=== PATIENT | male | born 1940 | race Caucasian/White ===

== ENCOUNTER → 2023-07-07 10:39 | Outpatient (REF) | payer MEDICARE, OTHER, SELFPAY ==
[2023-07-07 12:06] LABS: % Basophils 1.2 % (0-2); % Eosinophils 5.2 % (0-6); % Immature Granulocytes 0.2 % (0-0.5); % Lymphocytes 23.2 % (20.5-51.1); % Monocytes 16.1 % (1.7-9.3); % Neutrophils 54.1 % (42.2-75.2); Absolute Basophils 0.1 10^3/uL (0-0.2); Absolute Eosinophils 0.2 10^3/uL (0-0.7); Absolute Monocytes 0.7 10^3/uL (0.1-0.6); Absolute Neutrophils 2.3 10^3/uL (1.4-6.5); Hematocrit 42.2 % (39.0-52.0); Hemoglobin 13.9 g/dL (13.0-18.0); Mean Corp Hgb Conc. 32.9 g/dL (33.0-37.0); Mean Corpuscular Hgb 32.6 pg (27.0-31.0); Mean Corpuscular Volume 99.1 fL (80.0-94.0); Mean Platelet Volume 10.2 fL (7.4-10.4); Nucleated Red Blood Cells % 0 % (-); Platelet Count 106 10^3/uL (130-400); Red Blood Cell Count 4.26 10^6/uL (4.70-6.10); Red Cell Dist. Width 13.2 % (11.5-14.5); White Blood Cell Count 4.2 10^3/uL (4.8-10.8)
[2023-07-07 12:39] LABS: ALT (SGPT) 50 U/L (0-50); AST (SGOT) 48 U/L (17-59); Albumin 4.5 g/dl (3.5-5.0); Alkaline Phosphatase 55 U/L (38-126); Blood Urea Nitrogen 35 mg/dl (9-20); Calcium 10.5 mg/dl (8.4-10.2); Carbon Dioxide 25 mmol/L (22-30); Chloride 105 mmol/L (98-107); Glucose 85 mg/dl (70-99); Potassium 5.1 mmol/L (3.5-5.1); Sodium 138 mmol/L (135-145); Total Bilirubin 0.9 mg/dl (0.2-1.3); Total Cholesterol 157 mg/dl (50-199); Total Protein 6.9 g/dl (6.3-8.2); Triglyceride 54 mg/dl (10-149); Very Low Density Lipoprotein 10 mg/dl (0-30); eGFR 50.81
[2023-07-07 12:48] LABS: HDL Cholesterol 108 mg/dl; LDL Cholesterol, Calculated 39 mg/dl
== END ==
LOC: REG 10:39
PROVIDERS: ATTENDING PHYSICIAN Nurse Practitioner; FAMILY PHYSICIAN Internal Medicine
DX: I73.9 Peripheral vascular disease, unspecified (principal); I10 Essential (primary) hypertension; E78.00 Pure hypercholesterolemia, unspecified
CPT/HCPCS: 36415; 80053; 80061; 85025

== ENCOUNTER → 2023-09-24 09:11 | Outpatient (REF) | payer MEDICARE, OTHER, SELFPAY | LOC: RCS 09:11 | PROVIDERS: ATTENDING PHYSICIAN Nurse Practitioner; FAMILY PHYSICIAN Internal Medicine | DX: I73.9 Peripheral vascular disease, unspecified (principal); I10 Essential (primary) hypertension; E78.00 Pure hypercholesterolemia, unspecified | CPT/HCPCS: 93306 ==

== ENCOUNTER 2024-07-14 06:40 | Day surgery (SDC) | payer MEDICARE, OTHER, SELFPAY ==
[2024-07-12 13:48] VITALS: BMI 22.9
[2024-07-14] VITALS (12 sets, daily range): BP systolic 125–182; BP diastolic 78–110; BMI 22.3
[2024-07-14] MEDS: NORMOSOL-R/PLASMALYTE-A 1000 IV (11:32)
--- NOTE | 2024-07-14 12:09 | SUR.OPER ---
Patient upset that he is still waiting to go to the OR. Called Marlene at the administrative assistant front desk and she said they would not be ready for at least 45 more min. Patient made aware and given warm blankets and bathroom trip. Patient and his updated.
--- NOTE | 2024-07-14 14:44 | W.IMMPOSTOP ---
Surgical Immed Post Op Note
-
Primary Surgeon: Irenafer
Assisting Surgeon: none
Pre-op Diagnosis: BPH
Post-op Diagnosis: BPH, urethral stricture
Procedure Performed: TURP
Anesthesia Type: gen
Specimen / Cultures: prostate chips
Estimated Blood Loss: 1cc
Complications: none
Operative Findings: mild bulbar stricture dilated
[2024-07-14] MEDS: DILAUDID 0.25 MG IV (15:15)
--- NOTE | 2024-07-14 16:00 | PTCARENOTE ---
Pt received from the PACU via bed. Transport was w/o incident. Pt is AAOX3, HRR, lungs clear to auscultation, CBI infusing without difficulty, urine is pale pink at present w/o blood clots. VSS, Pt is afebrile. Pt denies pain or nausea at this time.
Pt instructed on plan of care, Pt verbalized understanding of instructions. Call osorio is within reach.
[2024-07-14] MEDS: LR 1000 IV (16:04)
[2024-07-14] MEDS: COREG 6.25 MG PO (20:26)
[2024-07-14] MEDS: SENOKOT 17.2 MG PO (20:26)
[2024-07-14] MEDS: LIPITOR 40 MG PO (21:23)
[2024-07-14] MEDS: FLOMAX 0.4 MG PO (21:23)
[2024-07-15 03:15] VITALS: BP 138/84
[2024-07-15 07:10] VITALS: BP 138/79
[2024-07-15 07:30] LABS: Hematocrit 38.3 % (39.0-52.0); Hemoglobin 12.7 g/dL (13.0-18.0)
[2024-07-15 08:16] LABS: Blood Urea Nitrogen 14 mg/dl (9-20); Calcium 9.3 mg/dl (8.4-10.2); Carbon Dioxide 27 mmol/L (22-30); Chloride 106 mmol/L (98-107); Estimated Creatinine Clearance 55 ml/min; Glucose 129 mg/dl (70-99); Potassium 4.3 mmol/L (3.5-5.1); Sodium 137 mmol/L (135-145); eGFR > 60.00
[2024-07-15] MEDS: PROCARDIA XL (EXTENDED RELEASE) 30 MG PO (09:23)
[2024-07-15] MEDS: SENOKOT 17.2 MG PO (09:24)
[2024-07-15] MEDS: COREG 6.25 MG PO (09:24)
[2024-07-15] MEDS: LOW STRENGTH ASPIRIN 81 MG PO (09:24)
[2024-07-15] MEDS: TYLENOL 650 MG PO (09:26)
--- NOTE | 2024-07-15 10:25 | W.PN.URO.CBU ---
Today's Communication / Plan
-
Trial of void
Assessment / Plan
-
83M POD 1 s/p TURP
- Remove mann for trial of void
- Likely discharge today
Diagnosis
-
Date of Service: July 15, 2024
-
Patient Diagnosis:
BPH
Post Op s/p TURP
Subjective
-
No issues overnight
No pain
Objective
-
Vital Signs
Temp Pulse Resp BP Pulse Ox
98.3 F 73 18 138/79 94
07/15/24 07:10 07/15/24 07:10 07/15/24 07:10 07/15/24 07:10 07/15/24 07:10
Intake and Output
07/14/24 07/15/24 07/16/24
06:59 06:59 06:59
Intake Total 1335 / 1335 240 / 240
Output Total 1100 / 1100
Balance 235 / 235 240 / 240
Intake:
Oral fluids 510 / 510 240 / 240
IV fluids (Total) 825 / 825
Normosol 125 / 125
Output:
True Urine Output from CBI 1100 / 1100
Laboratory Results
07/15/24 07:07
07/15/24 07:07
Physical Exam
-
General - well developed, well nourished, no acute distress
Chest - clear bilaterally
Abdomen - soft, non-tender
Mann in place, clear urine
[2024-07-15 11:25] VITALS: BP 125/70
== END 2024-07-15 14:47 | disposition home or self-care (01) ==
LOC: SDS 06:40
PROVIDERS: ATTENDING PHYSICIAN Urology
DX: N40.0 Benign prostatic hyperplasia without lower urinary tract symptoms (principal); N35.919 Unspecified urethral stricture, male, unspecified site
CPT/HCPCS: 52601; 88305; 80048; 85014; 85018; 88344

== ENCOUNTER → 2024-09-29 10:18 | Outpatient (REF) | payer MEDICARE, OTHER, SELFPAY | LOC: RAD 10:18 | PROVIDERS: ATTENDING PHYSICIAN Surgery Vascular Surgery | DX: I72.3 Aneurysm of iliac artery (principal); I65.21 Occlusion and stenosis of right carotid artery | CPT/HCPCS: 76770 ==

== ENCOUNTER → 2024-10-03 06:25 | Outpatient (REF) | payer MEDICARE, OTHER, SELFPAY | LOC: RAD 06:25 | PROVIDERS: ATTENDING PHYSICIAN Surgery Vascular Surgery | DX: I72.3 Aneurysm of iliac artery (principal); I65.21 Occlusion and stenosis of right carotid artery | CPT/HCPCS: 93880; 93922 ==